=== PATIENT | female | born 1965 | race Caucasian/White ===

== ENCOUNTER 2020-08-29 05:46 | Day surgery (SDC) | payer OTHER ==
[2020-08-27 12:49] LABS: COVID AG,FIA SOURCE NASOPHARYNGEAL
[~2020-08-29] VITALS: Ht 160 cm; Wt 73.6 kg
[~2020-08-29 05:46] MED LIST: ALBU8.5H8 IH; ATOR10TA69 PO; FAMO40TA7 PO; FLUT16H NASAL; GABA-1181 PO; LISI10TA7 PO; MONT10TA97 PO
[2020-08-29] MEDS ORDERED: SODIUM CHLORIDE 0.9% 1,000 ML ONE (05:57)
[2020-08-29] MEDS ORDERED: SODIUM CHLORIDE 0.9% 1,000 ML IV ONE (06:30)
[2020-08-29] MEDS ORDERED: MIDAZOLAM HCL 2 MG/2 ML VIAL ONE (08:09)
[2020-08-29] MEDS ORDERED: FentaNYL CITRATE-PF 100 MCG/2 ML VIAL ONE (08:10)
[2020-08-29] MEDS ORDERED: MethylPREDNISolone SOD SUCC 125 MG/2 ML VIAL IVP ONE (08:45)
[2020-08-29] MEDS ORDERED: MethylPREDNISolone SOD SUCC 125 MG/2 ML VIAL ONE (09:06)
[2020-08-29] MEDS ORDERED: OXYGEN THERAPY IH SCH (20:00)
== END 2020-08-29 10:30 | disposition home or self-care (01) ==
LOC: SURGERY 05:46
PROVIDERS: ATTEND Internal Medicine Critical Care Medicine
DX: J38.4 Edema of larynx (principal); B37.0 Candidal stomatitis
CPT/HCPCS: 31623; 31624; 71045; 87101; 87206; 87220; 87426; C9803; J2250; J2930; J3010; J7030; 87015; 88108; 88312

== ENCOUNTER 2024-03-14 07:13 | Day surgery (SDC) | payer OTHER ==
[~2024-03-14] VITALS: Ht 160 cm; Wt 70.4 kg
[~2024-03-14 07:13] MED LIST changes: +ALBU18HF12 IH; -ALBU8.5H8 IH; +BECL10.62 IH; -FLUT16H NASAL; +FLUT16SP NASAL; -GABA-1181 PO; +LISI10TA24 PO; -LISI10TA7 PO; +MONT-40 PO; -MONT10TA97 PO; +SODIUM CHLORIDE 0.9% 1,000 ML ONE
[2024-03-14] MEDS ORDERED: MIDAZOLAM HCL 2 MG/2 ML VIAL ONE (08:33)
[2024-03-14] MEDS ORDERED: FentaNYL CITRATE PF 100 MCG/2 ML VIAL ONE (08:34)
[2024-03-14 09:58] VITALS: PULSE 98; RESP 17; O2SAT 100
[2024-03-14] MEDS ORDERED: MethylPREDNISolone SOD SUCC 125 MG/2 ML VIAL ONE (10:25)
[2024-03-14] MEDS: SODIUM CHLORIDE 0.9% 1,000 ML IV ONE (10:35)
[2024-03-14] MEDS: MethylPREDNISolone SOD SUCC 125 MG/2 ML VIAL IVP ONE (10:35)
== END 2024-03-14 11:55 | disposition home or self-care (01) ==
LOC: SURGERY 07:13
PROVIDERS: ATTEND Internal Medicine Critical Care Medicine
DX: R05.3 Chronic cough (principal); R06.2 Wheezing; J38.4 Edema of larynx; B37.0 Candidal stomatitis; J84.10 Pulmonary fibrosis, unspecified; J98.8 Other specified respiratory disorders; J98.09 Other diseases of bronchus, not elsewhere classified; J98.11 Atelectasis; I10 Essential (primary) hypertension; Z85.21 Personal history of malignant neoplasm of larynx
CPT/HCPCS: 31623; 87206; 87101; 87220; 87070; 31624; 94640; 71045; 87015; J3010; J2250; J2919; J7030; 88108